=== PATIENT | male | born 1935 | race Caucasian/White ===

== ENCOUNTER 2017-04-18 21:19 | Emergency (ER) | payer MEDICARE, BC, OTHER ==
[~2017-04-18] VITALS: Ht 188 cm; Wt 95.2 kg
--- NOTE | ~2017-04-18 | EKG ---
PATIENT: MONA JENKINS UNIT #: [id number] Ventricular Rate: 72 BPM Atrial Rate: 72 BPM QRS Duration: 176 ms Q-T Interval: 484 ms QTC Calculation(Bezet): 529 ms Calculated R [place]: -92 degrees Calculated T [place]: 74 degrees Diagnosis Line: Ventricular-paced rhythm Diagnosis Line: Biventricular pacemaker detected Diagnosis Line: Abnormal ECG Diagnosis Line: No previous ECGs available Diagnosis Line: Confirmed by CHENCHO CHURCH MD ([id number]) on 04/19/2017 Diagnosis Line: 3:09:38 PM INTERPRETING MD: LYNNETTE MAXWELL
--- NOTE | ~2017-04-18 | CR72 ---
[facility] A Service of [facility] RADIOLOGY TEXT RESULTS PATIENT: MONA JENKINS LOCATION: [facility] : 35 UNIT #: [id number] AGE: [address]: Caio Coffman MD SEX: M ORDER DR: [id number] [facility] [address] [place], [place] [address] [id number] MR#: [id number] Acc #: [id number] NAME: MONA JENKINS : 1935 SEX: M STUDY DATE/TIME: 04/18/2017 23:16 UNIT: [facility] ROOM: STUDY DESCRIPTION: CR Chest Single View Portable Attending Physician: Herminio Coffman M.D. Ordering Physician: Herminio Coffman M.D. Primary Care Physician: Primary Care Physician No MEDICAL IMAGING REPORT This report is preliminary unless electronic signature is present EXAM Portable chest 04/18 at 23:16 INDICATIONS Left side chest pain today. FINDINGS AP portable chest was obtained. No comparison. 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 Lungs are clear. No pneumothorax. IMPRESSION Cardiomegaly. No active disease. Dictated by... Gilson Pisano Jr., M.D. THIS IS AN ELECTRONICALLY VERIFIED REPORT Gilson Pisano Jr., M.D. at 04/20/2017 3:12 AM TARAH/peter TD: 04/19/2017 20:01 JOB #: [id number] MEDICAL IMAGING REPORT Page 1 of 1 COPY
[~2017-04-18 21:19] MED LIST: ACETAMINOPHEN; ALDACTONE; AMIODARONE PO; ANTIVERT12.5 MG PO; ARIXTRA10 MG/0.8 SQ; ASPERDRINK81 MG PO; ASPIRIN EC81 M1 PO; ASPIRIN PO; ASPIRIN81 M1 PO; ASPIRIN81 M2 PO; ASPIRIN81 MG PO; ATENOLOL; AZITHROMYCIN250 MG PO; BENAZEPRIL HCL5 MG PO; BENAZEPRIL PO; BENTYL20 MG PO; BENZONATATE PO; COLACE PO; COREG PO; COREG12.5 MG PO; COUMADIN; COUMADIN2.5 MG PO; COUMADIN3 MG; COUMADIN3 MG PO; DESITIN DIAPER113 GM TOP; DICYCLOMINE HCL20 MG PO; FISH OIL 1,0001 CAP PO; FISH OIL 1,0001 EAC3 PO; FISH OIL 1,001000 MG PO; FISH OIL500 M1 PO; FLOMAX0.4 M1 PO; FLOMAX0.4 MG PO; FUROSEMIDE40 MG PO; KCL; KCL PO; KLOR-CON 88 ME1 PO; KLOR-CON PO; LASIX; LASIX PO; LEVOTHROID100 MC1 PO; LISINOPRIL; LORTAB 10-5001 EACH PO; LORTAB 5/500 TA1 TA1 PO; LOTENSIN PO; MACROBID100 MG PO; MEDROL4 MG/DOSE- PO; MIRALAX17 GM PO; MIRALAX255 GM PO; NAPROXEN; NEXIUM PO; NORCO1 TAB 10/3 PO; PERCOCET PO; POTASSIUM CHLOR8 ME2 PO; POTASSIUM CHLOR8 MEQ PO; POTASSIUM99 M1 PO; PRAVASTATIN SOD40 MG PO; PREDNISONE10 MG PO; PROSCAR5 MG PO; PROTONIX PO; SIMVASTATIN40 MG PO; SKELAXIN PO; SYNTHROID PO; SYNTHROID88 MCG PO; TIAZAC180 MG PO; TYLENOL325 M1 PO; TYLOX 5/500 CAP1 CAP PO; VICODIN 5/500 T1 TAB; VICODIN 5/500 T1 TAB PO; WARFARIN SODIU2.5 MG PO; WARFARIN SODIUM3 M1 PO; ZOCOR PO; ZOFRAN ODT4 MG PO; ZOFRANODT PO
[2017-04-18 23:44] LABS: BASOPHIL% 0.5 % (0-2.5); EOSINOPHIL# 0.1 X10e3 (0-0.7); HEMATOCRIT 41.1 % (38.0-50.0); HEMOGLOBIN 13.6 gm/dL (13.0-16.0); LYMPHOCYTE# 1.4 X10e3 (1.0-3.5); LYMPHOCYTE% 27.9 % (17.0-45.0); MEAN CELL VOLUME 94.9 FL (83-96); MEAN CORPUSCULAR HEMOGLOBIN 31.5 PG (28-34); MEAN CORPUSCULAR HGB CONC 33.2 g/dL (30-36); MEAN PLATELET VOLUME 9.1 FL (6.5-11.5); MONOCYTE# 0.6 X10e3 (0-1.0); MONOCYTE% 12.1 % (3.0-12.0); NEUTROPHIL# 2.9 X10e3 (1.5-7.1); NEUTROPHIL% 57.5 % (40-75); PLATELET COUNT 109 X10e3 (140-420); RED BLOOD COUNT 4.33 X10e (3.90-5.60); RED CELL DISTRIBUTION WIDTH 13.3 % (11.0-15.5); WHITE BLOOD COUNT 5.1 X10e3 (4.0-10.5)
[2017-04-18 23:48] LABS: DIFF IND NO
[2017-04-18 23:59] LABS: INR 3.1; PARTIAL THROMBOPLASTIN TIME 38.5 SECONDS (23.5-31.3); PROTHROMBIN TIME (PATIENT) 33.5 SECONDS (10.0-11.7)
[2017-04-19 00:04] LABS: CALCIUM SERUM 8.9 mg/dL (8.4-10.2); GLOM FILT RATE Estimated 70.3 mL/min (>60); POTASSIUM 4.3 mmol/L (3.5-5.1)
[2017-04-19 01:17] LABS: POC - CKMB 1.6 ng/mL (0.0-7.9); POC - TROPONIN <0.05 ng/mL (<=0.05)
== END 2017-04-19 01:35 | disposition home or self-care (01) ==
LOC: CED 21:19
PROVIDERS: Emergency Medicine
DX: J20.9 Acute bronchitis, unspecified (principal); I50.9 Heart failure, unspecified; Z79.01 Long term (current) use of anticoagulants; Z88.0 Allergy status to penicillin
CPT/HCPCS: 36415; 71010; 80048; 82553; 83880; 84484; 85025; 85610; 85730; 93005; 96374; 99284; J2930